=== PATIENT | female | born 1960 | race Caucasian/White ===

== ENCOUNTER 2018-02-08 15:50 | Outpatient (CLI) | payer BC | END 2018-02-08 15:51 | disposition home or self-care (01) | LOC: BICMAMMO 15:50 | PROVIDERS: ATTEND Family Medicine | DX: Z12.31 Encounter for screening mammogram for malignant neoplasm of breast (principal); N64.89 Other specified disorders of breast | CPT/HCPCS: 77063; 77067 ==

== ENCOUNTER 2018-02-18 12:51 | Outpatient (CLI) | payer BC | END 2018-02-18 12:52 | disposition home or self-care (01) | LOC: BICMAMMO 12:51 | PROVIDERS: ATTEND Family Medicine | DX: R92.2 Inconclusive mammogram (principal) | CPT/HCPCS: G0279 ==

== ENCOUNTER → 2018-03-05 | Day surgery (SDC) | payer BC ==
[2018-03-04 12:34] VITALS: BMI 40.6
--- NOTE | 2018-03-05 10:51 | MMO ---
LEFT BREAST NEEDLE LOCALIZATION: 03/05/2018 HISTORY: Questionable subtle nodule within the inferior medial left breast seen on prior diagnostic imaging. FINDINGS: Informed consent was obtained prior to the procedure. The patient was initially placed in the LM projection. Multiple images were taken, none of which rev ealed a lesion for targeting. In addition, a CC view was performed, also not demonstrating the previ ously noted lesion. IMPRESSION: The questionable density seen on prior diagnostic imaging does not persist on today's localization im aging. Thus, no needle localization could be performed. Further imaging options at this point inclu de a six month follow-up diagnostic mammogram versus a breast MRI at this time. These options were d iscussed with the patient at this time. In addition, the case and options were discussed with Dr. Julianne multani at approximately 9:00 a.m. on 03/05/2018. CODE CR POS: KOLBY
== END ==
LOC: SDC 07:30
PROVIDERS: ATTEND Surgery
DX: R92.8 Other abnormal and inconclusive findings on diagnostic imaging of breast (principal); Z53.8 Procedure and treatment not carried out for other reasons
CPT/HCPCS: 19281

== ENCOUNTER 2018-09-04 08:17 | Outpatient (CLI) | payer OTHER | END 2018-09-04 08:18 | disposition home or self-care (01) | LOC: BICMAMMO 08:17 | PROVIDERS: ATTEND Surgery | DX: R92.8 Other abnormal and inconclusive findings on diagnostic imaging of breast (principal) | CPT/HCPCS: G0279 ==